=== PATIENT | male | born 1955 | race African-American/Black ===

== ENCOUNTER 2017-04-05 11:48 | Emergency (ER) | payer MEDICAID ==
[~2017-04-05] VITALS: Ht 188 cm; Wt 77.1 kg
[~2017-04-05 11:48] MED LIST: DICLOFENAC SODI50 MG ORAL; IBUPROFEN600 MG ORAL; NORCO 5-325 TA1 EACH ORAL
[2017-04-05 11:55] VITALS: BP 128/86
[2017-04-05] MEDS ORDERED: ROBAXIN-750750 MG PO (12:20)
[2017-04-05] MEDS ORDERED: IBUPROFEN600 MG ORAL (12:20)
[2017-04-05] MEDS ORDERED: Ketorolac 60mg Inj IM ONE (12:30)
[2017-04-05] MEDS ORDERED: Methocarbamol 750mg tab ORAL ONE (12:30)
--- NOTE | 2017-04-05 12:32 | Emergency Room Report ---
History of Present Illness General Chief Complaint: Pain Source: Patient Present Illness HPI [id number] walk-in with severe right lower back pain since yesterday. No obvious exacerbating activity but states "he's always doing something outside, working around the house." Took ibuprofen and 's robaxin last night with some improvement. Denies urinary/fecal incontinence, lower extremity weakness, abd pain, fever/chills. Has been here before for right hip pain. Found to have mild arthritis on CT. Allergies: Coded Allergies: No Known Allergies (Unverified , 04/19/15) Patient History Past Medical History: none Past Surgical History: none Pertinent Family History: none Social History: Denies: alcohol use, drug use, smoking Immunizations: UTD Reviewed Nursing Documentation: PMH: Agreed, PSxH: Agreed Review of Systems All Other Systems: negative except mentioned in HPI Physical Exam Vital Signs Date Time Temp Pulse Resp B/P Pulse Ox O2 Delivery O2 Flow Rate FiO2 04/05/17 11:55 97.9 66 15 128/86 99 Room Air Sp02 EP Interpretation: reviewed, normal General Appearance: normal inspection, well appearing, no apparent distress, alert, GCS 15, non-toxic Head: normocephalic, atraumatic Eyes: bilateral eye EOMI, bilateral eye PERRL ENT: normal ENT inspection, hearing grossly normal, normal voice Neck: normal inspection, full range of motion, supple, no bony tend Respiratory: normal inspection, lungs clear, normal breath sounds, no respiratory distress, no retraction, no wheezing Cardiovascular #1: regular rate, rhythm, no edema Gastrointestinal: normal inspection, normal bowel sounds, non tender, soft, no guarding, no hernia Genitourinary: no CVA tenderness Musculoskeletal: normal inspection, back normal, normal range of motion, Emerald' s Sign negative, other - Mild right paravertebral ttp. 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, motor strength/tone normal, speech normal Psychiatric: normal inspection, judgement/insight normal, mood/affect normal Skin: normal inspection, normal color, no rash Lymphatic: normal inspection Medical Decision Making Diagnostic Impression: Primary Impression: Back pain Qualified Codes: M54.5 - Low back pain ER Course Right lower back strain A: low suspicion for cord compression given well appearance, right paravertebral ttp, no focal neuro deficits, absence of midline ttp/masses and pain worse with movement with known exacerbating activity Rx robaxin, ibuprofen, stretching, ice vs heat Last Vital Signs Date Time Temp Pulse Resp B/P Pulse Ox O2 Delivery O2 Flow Rate FiO2 04/05/17 11:55 97.9 15 128/86 99 Room Air 04/05/17 11:55 66 Status: improved Disposition: HOME, SELF-CARE Condition: Improved Scripts Ibuprofen* (MOTRIN*) 600 Mg Tablet 600 MG ORAL THREE TIMES A DAY for 7 Days, #30 TAB 0 Refills Prov: JEAN MARIE GUEVARA M.D. 04/05/17 Methocarbamol* (ROBAXIN-750*) 750 Mg Tablet 750 MG PO TID for 7 Days, #30 TAB 0 Refills Prov: JEAN MARIE GUEVARA M.D. 04/05/17 Patient Instructions: Lumbosacral Strain Additional Instructions: - Take ibupofren with robaxin up to 3x a day for pain - Apply heat or take ice bath - STRETCH as often as you can JEAN MARIE GUEVARA M.D. Apr 05, 2017 12:32
[2017-04-05 12:51] VITALS: BP 130/78
== END 2017-04-05 12:56 | disposition home or self-care (01) ==
LOC: EMR 12:27
DX: M54.5 Low back pain (principal)
CPT/HCPCS: 96372; 99284

== ENCOUNTER 2017-04-08 03:01 | Emergency (ER) | payer MEDICAID ==
[~2017-04-08] VITALS: Ht 188 cm; Wt 74.8 kg
[~2017-04-08 03:01] MED LIST changes: +ROBAXIN-750750 MG PO
[2017-04-08] MEDS ORDERED: Ketorolac 60mg Inj IM ONE (03:45)
[2017-04-08] MEDS ORDERED: Cyclobenzaprine 10mg Tab ORAL ONE (03:45)
[2017-04-08 03:55] VITALS: BP 144/92
--- NOTE | 2017-04-08 05:01 | Emergency Room Report ---
History of Present Illness General Chief Complaint: Pain Source: Patient Present Illness HPI Patient presents with severe back pain. Has had sciatica, but this is worsened over the past several days. Prior MD reported began the day before he presented (04/04). Allegedly worsened while working around the house. He doesn' t remember the incident. He had difficulty with walking - they live upstairs and he has had to lean heavily on in order to manage these. Before presented first time was taking motrin and 's robaxin with some reported help. No fevers, chills, incontinence of stool or urine. Pain 10/10, radiates down R leg, severe burning. Unable to sleep due to pain. They had refused to have commercial illustrator transport as they were told they would be taken to another hospital. drove here. In pain management. No depression, diabetes, HTN, NVD, chest pain, dyspnea, cough. Allergies: Coded Allergies: No Known Allergies (Unverified , 04/19/15) Patient History Past Medical History: see triage record Social History: Reports: smoking Social History Narrative Reviewed Nursing Documentation: PMH: Agreed, PSxH: Agreed Nursing Documentation-PMH Past Medical History: No Stated History Review of Systems All Other Systems: negative except mentioned in HPI Physical Exam Vital Signs Date Time Temp Pulse Resp B/P Pulse Ox O2 Delivery O2 Flow Rate FiO2 04/08/17 03:15 97.9 67 18 150/97 99 Room Air Sp02 EP Interpretation: reviewed, normal General Appearance: well appearing, no apparent distress, GCS 15 Head: normocephalic Eyes: bilateral eye normal inspection ENT: moist mucus membranes Neck: supple Respiratory: lungs clear, normal breath sounds Cardiovascular #1: regular rate, rhythm Cardiovascular #2: 2+ radial (R) Gastrointestinal: normal inspection, normal bowel sounds, non tender, no mass, non-distended Musculoskeletal: normal range of motion, other - more R sided tenderness lumbar area. SLR with pain in lumbar area and also radiates somewhat to upper leg and knee. No bony tenderness. Also some hip pain. Neurologic: alert, oriented x3, motor strength/tone normal, sensory intact, speech normal, other - gait with limp Psychiatric: depressed affect Reflexes: 2+ knee (R), 2+ knee (L), 1+ ankle (R), 1+ ankle (L) Skin: normal inspection, warm/dry Medical Decision Making Diagnostic Impression: Primary Impression: Back pain Qualified Codes: M54.41 - Lumbago with sciatica, right side Additional Impressions: Hip pain, right Drug-seeking behavior ER Course Patient presents with several days of lumbar pain radiating to R leg. Ddx: sciatica, strain, disk disease, DJD amongst others. No weakness. No red flag symptoms/signs. Due to mechanism and exam, no studies indicated. Check CURES - 120 Baxter filled 03/20. Confronted patient and he still wants meds from me. wants him admitted as he is having difficulty walking and dealing with their stairs. Given shot of toradol. Also given percocet. (Initially he said the pain was worse after toradol.) I discussed gabapentin. Rx given. Patient stable for outpatient observation and treatment. Last Vital Signs Date Time Temp Pulse Resp B/P Pulse Ox O2 Delivery O2 Flow Rate FiO2 04/08/17 06:19 97.9 80 18 144/92 99 Room Air Status: improved Disposition: HOME, SELF-CARE Condition: Improved Scripts Gabapentin* (GABAPENTIN*) 300 Mg Capsule 300 MG ORAL THREE TIMES A DAY, #30 CAP 0 Refills Prov: Kush Miller M.D. 04/08/17 Referrals: [facility],REFERRING (PCP) Kush Miller M.D. Apr 08, 2017 05:01
[2017-04-08] MEDS ORDERED: GABAPENTIN300 MG ORAL (05:03)
[2017-04-08] MEDS ORDERED: Oxycodone/Acetaminophen 5-325 ORAL ONE (06:00)
[2017-04-08 06:19] VITALS: BP 144/92
== END 2017-04-08 06:20 | disposition home or self-care (01) ==
LOC: EMR 03:51
DX: M54.41 Lumbago with sciatica, right side (principal); Z76.5 Malingerer [conscious simulation]; F17.200 Nicotine dependence, unspecified, uncomplicated
CPT/HCPCS: 96372; 99283

== ENCOUNTER 2017-04-09 11:22 | Emergency (ER) | payer MEDICAID ==
[~2017-04-09] VITALS: Ht 188 cm; Wt 74.8 kg
[~2017-04-09 11:22] MED LIST changes: +GABAPENTIN300 MG ORAL
[2017-04-09 11:59] VITALS: BP 160/76
[2017-04-09] MEDS ORDERED: Ketorolac 30mg Inj IV ONE (12:15)
[2017-04-09] MEDS ORDERED: Morphine Sulfate 2mg/ml Inj IVP ONE (12:15)
[2017-04-09 13:09] LABS: APPEARANCE,URINE CLEAR; KETONES,URINE NEGATIVE (NEGATIVE); LEUKOCYTE ESTERASE ,URINE NEGATIVE (NEGATIVE); NITRITE,URINE NEGATIVE (NEGATIVE); PH,URINE 5 (4.5-8.0); PROTEIN,URINE NEGATIVE (NEGATIVE); UROBILINOGEN,URINE NORMAL MG/DL (0.0-1.0)
[2017-04-09 13:14] LABS: BASOPHILS % (AUTO) 1.7 % (0.0-2.0); EOSINOPHILS % (AUTO) 2.2 % (0.0-3.0); LYMPHOCYTES % (AUTO) 40.5 % (20.0-45.0); MEAN CORPUSCULAR HGB CONC 31.2 G/DL (32.0-36.0); MEAN CORPUSCULAR VOLUME 99 FL (80-99); MEAN PLATELET VOLUME 8.5 FL (6.5-10.1); MONOCYTES % (AUTO) 5.8 % (1.0-10.0); NEUTROPHILS % (AUTO) 49.9 % (45.0-75.0); PLATELET COUNT 204 K/UL (150-450); RED CELL DISTRIBUTION WIDTH 12.5 % (11.6-14.8); WHITE BLOOD COUNT 4.4 K/UL (4.8-10.8)
[2017-04-09 13:18] LABS: PROTHROMBIN TIME 10.1 SEC (9.30-11.50)
[2017-04-09 13:21] LABS: ALANINE AMINOTRANSFERASE 8 U/L (3-41); ALBUMIN/GLOBULIN RATIO 1.6 (1.0-2.7); ANION GAP 14 (5-15); ASPARTATE AMINO TRANSFERASE 15 U/L (5-40); CALCIUM 8.9 mg/dL (8.6-10.2); CARBON DIOXIDE 25 mEQ/L (20-30); CHLORIDE 105 mEQ/L (98-107); CREATININE 1.1 mg/dL (0.7-1.2); CRP QUANT < 0.3 mg/dL (< 0.5); GLOMERULAR FILTRATION RATE > 60 mL/min (>60); HEMOLYSIS 8; POTASSIUM 4.1 mEQ/L (3.4-4.9); SODIUM 144 mEQ/L (135-145); TOTAL PROTEIN 6.4 g/dL (6.6-8.7)
[2017-04-09 13:25] LABS: BACTERIA,URINE OCCASIONAL /HPF; SQUAMOUS EPITHELIAL CELL,UR OCCASIONAL /LPF (NONE/OCC); WBC,URINE 0-2 /HPF (0 - 0)
--- NOTE | 2017-04-09 14:05 | Diagnostic Imaging Report ---
Indications: Low back pain x4 days Technique: Spiral acquisitions obtained through the lumbar spine. Multiplanar reconstructions were generated. No IV contrast utilized. Total dose length product 0.39 mGycm. CTDIvol(s) 12 mGy. Dose reduction achieved using automated exposure control Comparison: None Findings: Vertebral body heights are preserved. Bony alignment is normal. No acute fractures. No dislocations. There is a sizable intravertebral disc herniation (AKA Schmorl's node) involving the superior endplate of L4. At L3-4, there is mild generalized circumferential annular bulge, which does not significantly narrow the spinal canal or neural foramina. There are anterior osteophytes at this level, as well as very mild subchondral sclerosis of the superior endplate of L4. The disc space is preserved. At L4-5, there is mild circumferential annular bulge, which does not significantly narrow the spinal canal. There is an abnormal amount of soft tissue in the right neural foramen. This appears to be thickening of the nerve root, but could also represent an extruded disc fragment. The disc space is preserved. There are anterior osteophytes. There is mild degenerative facet disease on the left At L5-S1, there is circumferential annular bulge which does not significantly narrow the spinal canal or compromise the neural foramina. There is mild degenerative facet disease on the left At the remaining disc levels, no significant disc bulge or protrusion, spinal stenosis, or neural foraminal stenosis. The included extraspinal soft tissues are remarkable for the presence of colonic diverticulosis. Impression: No acute bony trauma Abnormal soft tissue within the right L4-5 neural foramen. Suspect that this represents thickening of the nerve root of uncertain etiology. Alternatively, this could represent area of focal disc protrusion or extrusion. Recommend contrast MRI for better characterization. Mild degenerative changes as detailed above The CT scanner at [facility] is accredited by the [employer] and the scans are performed using protocols designed to limit radiation exposure to as low as reasonably achievable to attain images of sufficient resolution adequate for diagnostic evaluation.
[2017-04-09 14:20] LABS: ERYTHROCYTE SEDIMENTATION RATE 8 MM/HR (0-20)
--- NOTE | 2017-04-09 15:39 | Emergency Room Report ---
History of Present Illness General Chief Complaint: Pain Source: Patient, Significant Other, Medical Record Present Illness HPI This is the patient's third presentation for intractable lumbar pain. He states the pain is severe and radiating down his right leg. He states he is having difficulty ambulating. The first time he received an injection of Toradol and a prescription for Motrin. He came back 3 days later. He had difficulty ambulating and his ended up falling down some stairs and hitting her knee on that second visit. (She was seen as a patient.) That visit he received another shot of Toradol also received Percocet. I reviewed deciduous and he had filled a prescription for [place] on March 20, 120 tablets of 10/325 mg which should have lasted him 3 days. Therefore I did not prescribe any other narcotics at that time. He returns today unable to sleep and with severe pain. Denies any incontinence , fever, numbness. He does claim to have weakness in the leg. The pain is 10/ 10, burning and radiates down the leg. He denies any recent trauma. H/O DJD hips. Please refer to notes: 04/05, 04/08. Allergies: Coded Allergies: No Known Allergies (Unverified , 04/19/15) Patient History Past Medical History: see triage record Social History: Reports: smoking Social History Narrative Reviewed Nursing Documentation: PMH: Agreed, PSxH: Agreed Nursing Documentation-PMH Past Medical History: No History, Except For Review of Systems All Other Systems: negative except mentioned in HPI Physical Exam Vital Signs Date Time Temp Pulse Resp B/P Pulse Ox O2 Delivery O2 Flow Rate FiO2 04/09/17 11:31 98.1 68 16 160/76 98 Room Air Sp02 EP Interpretation: reviewed, normal General Appearance: well appearing, no apparent distress, GCS 15, other - in pain Head: normocephalic Eyes: bilateral eye PERRL, bilateral eye normal inspection ENT: moist mucus membranes - poor dentition Neck: supple Respiratory: lungs clear, normal breath sounds Cardiovascular #1: regular rate, rhythm Cardiovascular #2: 2+ radial (R) Gastrointestinal: normal inspection, normal bowel sounds, non tender, no mass, non-distended, scaphoid Musculoskeletal: gait/station normal, normal range of motion, other - lumbar tenderness more on R, not bone tenderness. SLR with good range and increase in pain at 80 degrees - radiates to R leg Neurologic: alert, oriented x3, motor strength/tone normal, DTRs symmetric, sensory intact, cerebellar normal, speech normal Reflexes: 2+ knee (R), 2+ knee (L), 1+ ankle (R), 1+ ankle (L) Skin: normal inspection, warm/dry Medical Decision Making Diagnostic Impression: Primary Impression: Sciatica Qualified Codes: M54.31 - Sciatica, right side Additional Impressions: Intractable low back pain Drug abuse ER Course The patient's fourth presentation to this facility for intractable back pain. Differential includes laceration of chronic pain, respirations sciatica, other potential spinal deformity or neurologic process, possible drug-seeking behavior. Evaluation today will be with CT scan labs. In addition to that patient will receive Toradol IV and a small dose of morphine. Patient is somewhat improved however when attempting to ambulate he still has severe pain. The patient is admitted for observation and pain control with a focus on possible discharge to rehabilitation. Morphine repeated. Improved, but still with pain. The patient was presented to Dr. Yaneth aguillon and accepted by him at [facility]. Laboratory Tests Test 04/09/17 12:33 White Blood Count 4.4 K/UL (4.8-10.8) L Red Blood Count 4.30 M/UL (4.70-6.10) L Hemoglobin 13.3 G/DL (14.2-18.0) L Hematocrit 42.6 % (42.0-52.0) Mean Corpuscular Volume 99 FL (80-99) Mean Corpuscular Hemoglobin 31.0 PG (27.0-31.0) Mean Corpuscular Hemoglobin Concent 31.2 G/DL (32.0-36.0) L Red Cell Distribution Width 12.5 % (11.6-14.8) Platelet Count 204 K/UL (150-450) Mean Platelet Volume 8.5 FL (6.5-10.1) Neutrophils (%) (Auto) 49.9 % (45.0-75.0) Lymphocytes (%) (Auto) 40.5 % (20.0-45.0) Monocytes (%) (Auto) 5.8 % (1.0-10.0) Eosinophils (%) (Auto) 2.2 % (0.0-3.0) Basophils (%) (Auto) 1.7 % (0.0-2.0) Erythrocyte Sedimentation Rate 8 MM/HR (0-20) Prothrombin Time 10.1 SEC (9.30-11.50) Prothrombin Time INR 1.0 (0.9-1.1) PTT 29 SEC (23-33) Urine Color Pale yellow Urine Appearance Clear Urine pH 5 (4.5-8.0) Urine Specific [place] 1.015 (1.005-1.035) Urine Protein Negative (NEGATIVE) Urine Glucose (UA) Negative (NEGATIVE) Urine Ketones Negative (NEGATIVE) Urine Occult Blood 1+ (NEGATIVE) H Urine Nitrite Negative (NEGATIVE) Urine Bilirubin Negative (NEGATIVE) Urine Urobilinogen Normal MG/DL (0.0-1.0) Urine Leukocyte Esterase Negative (NEGATIVE) Urine RBC 2-4 /HPF (0 - 0) H Urine WBC 0-2 /HPF (0 - 0) Urine Squamous Epithelial Cells Occasional /LPF Urine Bacteria Occasional /HPF (NONE) Sodium Level 144 mEQ/L (135-145) Potassium Level 4.1 mEQ/L (3.4-4.9) Chloride Level 105 mEQ/L (98-107) Carbon Dioxide Level 25 mEQ/L (20-30) Anion Gap 14 (5-15) Blood Urea Nitrogen 18 mg/dL (7-23) Creatinine 1.1 mg/dL (0.7-1.2) Estimate Glomerular Filtration Rate > 60 mL/min (>60) Glucose Level 90 mg/dL (74-106) Calcium Level 8.9 mg/dL (8.6-10.2) Total Bilirubin 0.3 mg/dL (0.0-1.2) Aspartate Amino Transferase (AST) 15 U/L (5-40) Alanine Aminotransferase (ALT) 8 U/L (3-41) Alkaline Phosphatase 68 U/L (40-129) C-Reactive Protein, Quantitative < 0.3 mg/dL (< 0.5) Total Protein 6.4 g/dL (6.6-8.7) L Albumin 4.0 g/dL (3.5-5.2) Globulin 2.4 g/dL Albumin/Globulin Ratio 1.6 (1.0-2.7) Urine Opiates Screen Negative (NEGATIVE) Urine Barbiturates Screen Negative (NEGATIVE) Phencyclidine (PCP) Screen Negative (NEGATIVE) Urine Amphetamines Screen Negative (NEGATIVE) Urine Benzodiazepines Screen Negative (NEGATIVE) Urine Cocaine Screen Positive (NEGATIVE) H Urine Marijuana (THC) Screen Negative (NEGATIVE) CT/MRI/US Diagnostic Results CT/MRI/US Diagnostic Results : Imaging Test Ordered: L/S Impression Findings: Vertebral body heights are preserved. Bony alignment is normal. No acute fractures. No dislocations. There is a sizable intravertebral disc herniation (AKA Schmorl's node) involving the superior endplate of L4. At L3-4, there is mild generalized circumferential annular bulge, which does not significantly narrow the spinal canal or neural foramina. There are anterior osteophytes at this level, as well as very mild subchondral sclerosis of the superior endplate of L4. The disc space is preserved. At L4-5, there is mild circumferential annular bulge, which does not significantly narrow the spinal canal. There is an abnormal amount of soft tissue in the right neural foramen. This appears to be thickening of the nerve root, but could also represent an extruded disc fragment. The disc space is preserved. There are anterior osteophytes. There is mild degenerative facet disease on the left At L5-S1, there is circumferential annular bulge which does not significantly narrow the spinal canal or compromise the neural foramina. There is mild degenerative facet disease on the left At the remaining disc levels, no significant disc bulge or protrusion, spinal stenosis, or neural foraminal stenosis. The included extraspinal soft tissues are remarkable for the presence of colonic diverticulosis. Impression: No acute bony trauma Abnormal soft tissue within the right L4-5 neural foramen. Suspect that this represents thickening of the nerve root of uncertain etiology. Alternatively, this could represent area of focal disc protrusion or extrusion. Recommend contrast MRI for better characterization. Mild degenerative changes as detailed above Last Vital Signs Date Time Temp Pulse Resp B/P Pulse Ox O2 Delivery O2 Flow Rate FiO2 04/09/17 19:03 98.2 61 16 153/89 98 Room Air Status: improved Disposition: XFER SHT-TRM HOSP Condition: Serious - but stable for transfer Referrals: [facility],REFERRING (PCP) Kush Miller M.D. Apr 09, 2017 15:39
[2017-04-09 16:19] VITALS: BP 148/94
[2017-04-09] MEDS ORDERED: Morphine Sulfate 4mg/ml Inj IVP ONE (17:00)
[2017-04-09 19:03] VITALS: BP 153/89
[2017-04-09 19:16] VITALS: BP 153/89
== END 2017-04-09 19:16 | disposition short-term general hospital (02) ==
LOC: EMR 12:11
DX: M54.31 Sciatica, right side (principal); M54.5 Low back pain; F19.10 Other psychoactive substance abuse, uncomplicated; F17.210 Nicotine dependence, cigarettes, uncomplicated; M51.26 Other intervertebral disc displacement, lumbar region
CPT/HCPCS: 36415; 72131; 80053; 80300; 81003; 85025; 85610; 85651; 85730; 86140; 96374; 96375; 99285; J1885; J2270

== ENCOUNTER 2017-10-21 08:51 | Emergency (ER) | payer MEDICAID ==
[~2017-10-21] VITALS: Ht 188 cm; Wt 78.5 kg
[2017-10-21] MEDS ORDERED: NKM (09:01)
--- NOTE | 2017-10-21 09:11 | Emergency Room Report ---
History of Present Illness General Chief Complaint: Upper Respiratory Illness Source: Patient Present Illness HPI Patient presents with complaints of cough Patient's has had symptoms since thinks giving patient several weeks ago had mild cough Appear to get better however again started to have increased cough Patient denies any vomiting with the cough Denies any diarrhea Patient does have extensive smoking history Denies any neck pain Denies any chest pain Allergies: Coded Allergies: No Known Allergies (Unverified , 04/19/15) Patient History Past Medical History: see triage record Pertinent Family History: none Reviewed Nursing Documentation: PMH: Agreed, PSxH: Agreed Review of Systems All Other Systems: negative except mentioned in HPI Physical Exam Vital Signs Date Time Temp Pulse Resp B/P (MAP) Pulse Ox O2 Delivery O2 Flow Rate FiO2 10/21/17 08:58 98.4 89 17 130/84 96 Room Air Sp02 EP Interpretation: reviewed, normal General Appearance: well appearing, no apparent distress Head: normocephalic, atraumatic Eyes: bilateral eye PERRL, bilateral eye EOMI ENT: hearing grossly normal, normal pharynx, TMs + canals normal, uvula midline Neck: full range of motion, supple, no meningismus, no bony tend Respiratory: no retraction, no accessory muscle use, crackles Cardiovascular #1: normal peripheral pulses, regular rate, rhythm Gastrointestinal: non tender, soft, no mass, non-distended, no guarding, no hernia, no pulsatile mass Musculoskeletal: normal inspection Neurologic: oriented x3, responsive Skin: normal color, no rash, warm/dry, palpation normal Lymphatic: normal inspection, no adenopathy Medical Decision Making Diagnostic Impression: Primary Impression: Pneumonia ER Course Patient is a fairly complex patient with multiple differential to consideration including but not limited to cardiac cardiopulmonary and vascular emergencies Patient's x-ray does not show any acute disease He has not significantly better with breathing treatment patient also does have sick contacts was here and being seen in the clinical duration findings Exam is in line with pneumonia community-acquired patient placed on medications and requires close followup Chest X-Ray Diagnostic Results Chest X-Ray Diagnostic Results : Chest X-Ray Ordered: Yes # of Views/Limited/Complete: 1 View Indication: Chest Pain EP Interpretation: Yes Interpretation: no consolidation, no effusion, no pneumothorax, no acute cardiopulmonary disease Impression: No acute disease Electronically Signed by: Flores Virk DO Last Vital Signs Date Time Temp Pulse Resp B/P (MAP) Pulse Ox O2 Delivery O2 Flow Rate FiO2 10/21/17 08:58 98.4 89 17 130/84 96 Room Air Status: improved Disposition: HOME, SELF-CARE Condition: Improved Scripts Guaifenesin/Dextromethorphan (ROBITUSSIN COUGH-CHEST DM LIQ) 237 Ml Liquid 10 ML PO QHS for 5 Days, ML Prov: FLORES VIRK D.O. 10/21/17 Albuterol Sulfate* (ALBUTEROL SULFATE MDI*) 8.5 Gm Hfa.aer.ad 2 PUFF INH Q4H Y for cough/wheezing, #1 EA 0 Refills Prov: FLORES VIRK D.O. 10/21/17 Levofloxacin* (LEVAQUIN*) 750 Mg Tablet 750 MG ORAL DAILY for 7 Days, TAB Prov: FLORES VIRK D.O. 10/21/17 Additional Instructions: Patient is provided with the discharge instructions notified to follow up with primary doctor in the next 2-3 days otherwise return to the er with any worsening symptoms. Please note that this report is being documented using [employer] technology. This can lead to erroneous entry secondary to incorrect interpretation by the dictating instrument. FLORES VIRK D.O. Oct 21, 2017 09:11
[2017-10-21] MEDS ORDERED: Ipratropium 0.02% Inh Soln 2.5ml UD HHN ONE (09:15)
[2017-10-21] MEDS ORDERED: Albuterol ud Inhalation HHN ONE (09:15)
[2017-10-21] MEDS ORDERED: LEVAQUIN750 MG ORAL (10:12)
[2017-10-21] MEDS ORDERED: ROBITUSSIN COU237 M1 PO (10:12)
[2017-10-21] MEDS ORDERED: ALBUTEROL SULF8.5 GM INH (10:12)
[2017-10-21 10:25] VITALS: BP 126/90
[2017-10-21 10:27] VITALS: BP 126/90
--- NOTE | 2017-10-24 10:25 | Diagnostic Imaging Report ---
Indication: Shortness of breath Technique: XRAY Chest 1v Comparison: None Findings: Cardiomediastinal silhouette is within normal limits. There is no consolidation or pleural effusion. Osseous structures demonstrate no acute abnormality. Impression: No acute cardiopulmonary disease.
== END 2017-10-21 10:29 | disposition home or self-care (01) ==
LOC: EMR 09:09
DX: J18.9 Pneumonia, unspecified organism (principal)
CPT/HCPCS: 71045; 94640; 94664; 99284

== ENCOUNTER 2018-03-20 14:14 | Emergency (ER) | payer MEDICAID ==
[~2018-03-20] VITALS: Ht 188 cm; Wt 77.1 kg
[~2018-03-20 14:14] MED LIST changes: +ALBUTEROL SULF8.5 GM INH; +LEVAQUIN750 MG ORAL; +NKM; +ROBITUSSIN COU237 M1 PO
[2018-03-20 14:24] VITALS: BP 150/103
[2018-03-20] MEDS ORDERED: NORCO 10-325 T1 EACH ORAL (14:27)
[2018-03-20] MEDS ORDERED: VALIUM10 MG ORAL (14:27)
[2018-03-20] MEDS ORDERED: Ketorolac 60mg Inj IM ONE (15:00)
--- NOTE | 2018-03-20 15:07 | Emergency Room Report ---
History of Present Illness General Chief Complaint: Pain Source: Patient, Medical Record Present Illness HPI 62 YO male presents to the ED c/o Right -sided low back pain that shoots down the leg x x 1 week. reports 9/10 in severity pain. exacerbated with certain quick movements. denies trauma or fall. Reports helping to move heavy boxes just prior to onset. pt. reports had MRI in the past. Denies recent spinal procedures or hx of cancer. Denies numbness tingling or loss of sensation or gross motor movements of the extremities, incontinence of bowel or bladder. Denies CP, Palpitations, LOC, AMS, dizziness, Changes in Vision, weakness or a sudden severe headache. Allergies: Coded Allergies: No Known Allergies (Unverified , 04/19/15) Patient History Past Medical History: see triage record Past Surgical History: none Pertinent Family History: none Immunizations: UTD Reviewed Nursing Documentation: PMH: Agreed; PSxH: Agreed Nursing Documentation-PMH Past Medical History: No History, Except For Review of Systems All Other Systems: negative except mentioned in HPI Physical Exam Vital Signs Date Time Temp Pulse Resp B/P (MAP) Pulse Ox O2 Delivery O2 Flow Rate FiO2 03/20/18 14:24 98.2 72 18 150/103 95 Room Air 98.2 Sp02 EP Interpretation: reviewed, normal General Appearance: alert, GCS 15, non-toxic, mild distress Head: normocephalic, atraumatic ENT: hearing grossly normal, normal voice Neck: full range of motion Respiratory: lungs clear, normal breath sounds, speaking full sentences Cardiovascular #1: regular rate, rhythm Genitourinary: normal inspection Musculoskeletal: back normal, gait/station normal, normal range of motion, tender - right lumbar paraspinal ttp and upper right gluteal ttp. Neurologic: alert, oriented x3, responsive, motor strength/tone normal, sensory intact, normal gait, speech normal, other - FROM of spine. no erythema, grossly normal Psychiatric: judgement/insight normal Skin: normal color, no rash, warm/dry, well hydrated Medical Decision Making PA Attestation Dr. Young is my supervising Physician whom patient management has been discussed with. Diagnostic Impression: Primary Impression: Back pain Qualified Codes: M54.41 - Lumbago with sciatica, right side ER Course 62 YO male presents to the ED c/o Right -sided low back pain that shoots down the leg x x 1 week. reports 9/10 in severity pain. exacerbated with certain quick movements. denies trauma or fall. Denies numbness tingling or loss of sensation or gross motor movements of the extremities, incontinence of bowel or bladder. Denies CP, Palpitations, LOC, AMS , dizziness, Changes in Vision, weakness or a sudden severe headache. Ddx considered but are not limited to Fracture, dislocation, contusion, epidural abscess, Sprain/Strain/Spasm Vital signs: are WNL, pt. is afebrile H&PE are most consistent with sciatica Pt. able to tolerate straight leg raise- pain with right leg elevation. ORDERS: X-ray not required at this time, no spinous process tenderness ED INTERVENTIONS: - IM Toradol 20mg. -Soma PO Re-Evaluation: pt. states his pain has subsided with ED interventions DISCHARGE: At this time pt. is stable for d/c to home. Will provide printed patient care instructions, and any necessary prescriptions. Care plan and follow up instructions have been discussed with the patient prior to discharge. Last Vital Signs Date Time Temp Pulse Resp B/P (MAP) Pulse Ox O2 Delivery O2 Flow Rate FiO2 03/20/18 14:24 98.2 72 18 150/103 95 Room Air 98.2 Disposition: HOME, SELF-CARE Condition: Stable Scripts Lidocaine (Lidoderm) 1 Each Adh..patch 1 PATCH TOPIC DAILY, #30 PATCH 0 Refills Patch(es) may remain in place for up to 12 hours in any 24-hour period. Prov: Rohini Haywood P.A. 03/20/18 Methocarbamol* (ROBAXIN*) 500 Mg Tablet 1000 MG PO TID for 7 Days, #42 TAB 0 Refills Prov: Rohini Haywood P.A. 03/20/18 Prednisone* (PREDNISONE*) 20 Mg Tablet 20 MG ORAL DAILY for 5 Days, #5 TAB 0 Refills Prov: Rohini Haywood P.A. 03/20/18 Patient Instructions: Back Pain, Adult, [id number], Sciatica, [id number] Additional Instructions: Take medications as directed. Follow up with a Primary Care Provider in 3 days, even if your symptoms have resolved. CONTACT your primary prescribing provider to notify them you visited the ED. in case you need further medication management. --Please review list of primary care clinics, if you do not already have a primary care provider Return sooner to ED if new symptoms occur, or current symptoms become worse. Do not drink alcohol, drive, or operate heavy machinery while taking Muscle Relaxers as this may cause drowsiness. - Please note that this Emergency Department Report was dictated using [email or web address] modeler technology software, occasionally this can lead to erroneous entry secondary to interpretation by the dictation equipment. Rohini Haywood Mar 20, 2018 15:07
[2018-03-20] MEDS ORDERED: ROBAXIN500 MG PO (15:13)
[2018-03-20] MEDS ORDERED: PREDNISONE20 MG ORAL (15:13)
[2018-03-20] MEDS ORDERED: LIDODERM700 M1 TOPIC (15:13)
[2018-03-20 15:35] VITALS: BP 121/61
== END 2018-03-20 15:35 | disposition home or self-care (01) ==
LOC: EMR 14:55
DX: M54.41 Lumbago with sciatica, right side (principal)
CPT/HCPCS: 96372; 99284